=== PATIENT | female | born 1940 | race Two or more races ===

== ENCOUNTER 2017-08-12 14:15 | Emergency (ER) | payer MEDICARE, OTHER ==
[~2017-08-12] VITALS: Ht 160 cm; Wt 63.5 kg
[~2017-08-12 14:15] MED LIST: ASCO1ER PO; CALCIUM; DIAZ5 PO; ERGO400 PO; PHENY100ER PO; PROP10 PO
[2017-08-12] MEDS ORDERED: Mupirocin22 GM TOP (15:33)
== END 2017-08-12 15:42 | disposition home or self-care (01) ==
LOC: ER 14:15
DX: L72.3 Sebaceous cyst (principal); Z88.8 Allergy status to other drugs, medicaments and biological substances; Z88.1 Allergy status to other antibiotic agents; Z88.0 Allergy status to penicillin; Z88.2 Allergy status to sulfonamides; Z88.6 Allergy status to analgesic agent; Z88.7 Allergy status to serum and vaccine; Z91.011 Allergy to milk products; Z91.038 Other insect allergy status; Z79.899 Other long term (current) drug therapy; Z87.891 Personal history of nicotine dependence
CPT/HCPCS: 10060; 99283

== ENCOUNTER → 2018-03-14 | Outpatient (CLI) | payer MEDICARE, OTHER ==
[~2018-03-14] MED LIST changes: +Mupirocin22 GM TOP
[2018-03-14 12:25] LABS: Source, Urine Voided
[2018-03-14 12:59] LABS: Bilirubin, Urine Neg (Neg); Blood, Urine 2+ (Neg); Glucose Qualitative, Urine Neg (Neg); Ketones, Urine Neg (Neg); Leukocyte Esterase, Urine 3+ (Neg); Nitrite, Urine Neg (Neg); Protein, Urine 2+ (Neg); Specific Gravity, Urine 1.015 (1.003-1.022); Urobilinogen, Urine NORM (Normal)
[2018-03-14 13:17] LABS: Appearance, Urine Cloudy (Clear); Color, Urine Pale Yellow (P-Yellow)
[2018-03-14 13:19] LABS: White Blood Cells, Urine TNTC /hpf (0-5)
[2018-03-14 13:20] LABS: Bacteria Many /hpf; Renal Epithelial Rare /hpf (0-Rare); Squamous Epithelial Cells Few /hpf (Few)
== END ==
LOC: LAB SHORT 12:23 → LAB 12:23
PROVIDERS: Internal Medicine
DX: R30.0 Dysuria (principal)
CPT/HCPCS: 81001; 87086; 87147

== ENCOUNTER → 2018-04-08 | Outpatient (CLI) | payer MEDICARE, OTHER ==
[2018-04-08 10:26] LABS: Source, Urine Clean Catch
[2018-04-08 12:32] LABS: Bilirubin, Urine Neg (Neg); Blood, Urine Neg (Neg); Glucose Qualitative, Urine Neg (Neg); Ketones, Urine Neg (Neg); Leukocyte Esterase, Urine 1+ (Neg); Nitrite, Urine Neg (Neg); Protein, Urine Neg (Neg); Urobilinogen, Urine NORM (Normal)
[2018-04-08 12:41] LABS: Appearance, Urine Clear (Clear); Color, Urine Yellow (P-Yellow)
[2018-04-08 12:42] LABS: Red Blood Cells, Urine 0-2 /hpf (0-2); Squamous Epithelial Cells Few /hpf (Few); Transitional Epithelial Cells Few /hpf (0-Rare)
[2018-04-08 12:43] LABS: Bacteria Mod /hpf
== END | disposition home or self-care (01) ==
LOC: LAB SHORT 09:05 → LAB 09:05 → EDSTATUS 04-04 15:00 → LAB FUT 04-04 15:00
PROVIDERS: Internal Medicine
DX: N39.0 Urinary tract infection, site not specified (principal)
CPT/HCPCS: 81001; 87086

== ENCOUNTER 2019-10-21 20:05 | Inpatient (IN) | payer MEDICARE, OTHER ==
[~2019-10-21] VITALS: Ht 165.1 cm; Wt 39.8 kg
[~2019-10-21 20:05] MED LIST changes: -ASCO1ER PO; -CALCIUM; -ERGO400 PO; -PHENY100ER PO
[2019-10-21 20:45] LABS: Source, Urine Catheter
[2019-10-21 20:49] LABS: Bilirubin, Urine Neg (Neg); Blood, Urine Neg (Neg); Glucose Qualitative, Urine Neg (Neg); Ketones, Urine 4+ (Neg); Leukocyte Esterase, Urine Neg (Neg); Nitrite, Urine Neg (Neg); Protein, Urine 2+ (Neg); Specific Gravity, Urine 1.015 (1.003-1.022); Urobilinogen, Urine 2+ (Normal); pH, Urine 6.5 (5.0-8.0)
[2019-10-21 20:55] LABS: Hematocrit 39.8 % (33.0-51.0); Mean Corpuscular HGB 31.6 pg (26.0-34.0); Mean Corpuscular HGB Conc 32.7 g/dL (31.5-36.5); Mean Corpuscular Volume 97 fL (80-100); Mean Platelet Volume 11.3 fL (9.1-12.4); Platelet Count 305 K/mm3 (150-400); RDW Coefficient Variation 12.7 % (11.7-14.2); RDW Standard Deviation 45.5 fL (35.1-46.3); Red Blood Cell Count 4.11 M/mm3 (3.80-5.20); White Blood Cell Count 17.12 K/mm3 (4.00-11.30)
[2019-10-21 20:56] LABS: Appearance, Urine Clear (Clear); Color, Urine Yellow (P-Yellow)
[2019-10-21 21:02] LABS: Bacteria Mod /hpf; Mucus Light (0-Heavy); Red Blood Cells, Urine 0-2 /hpf (0-2); Squamous Epithelial Cells Few /hpf (Few); White Blood Cells, Urine 0-2 /hpf (0-5)
[2019-10-21 21:13] LABS: Alanine Aminotransfer (ALT/SGP 33 U/L (12-78); Albumin, Blood 2.7 g/dL (3.4-5.0); Albumin/Globulin Ratio 0.7 (0.8-1.8); Alk Phos 196 U/L (50-136); Anion Gap 10 mmol/L (6-16); Aspartate Aminotrans (AST/SGOT 26 U/L (12-37); Bilirubin, Total 0.7 mg/dL (0.1-1.0); Blood Urea Nitrogen 23 mg/dL (8-24); Bun/Creatinine Ratio 44.9 (12.0-20.0); CO2, Blood 19 mmol/L (21-32); Calcium, Blood 8.8 mg/dL (8.5-10.1); Chloride, Blood 117 mmol/L (98-108); Creatinine, Blood 0.51 mg/dL (0.40-1.00); Dilantin (Phenytoin), Total 3.3 ug/mL (10.0-20.0); Glomerular Filtration Rate >60 (60-); Glucose, Blood 116 mg/dL (70-99); Potassium, Blood 3.1 mmol/L (3.5-5.5); Sodium, Blood 146 mmol/L (136-145); Total Protein, Blood 6.7 g/dL (6.4-8.2)
[2019-10-21 21:17] LABS: Thyroid Stimulating Hormone 0.251 uIU/mL (0.360-4.800)
[2019-10-21 21:17] LABS: Bicarbonate Venous 17.9 mmol/L (24.0-30.0); PCO2 Venous 31.7 mmHg (38-42); PO2 Venous 138 mmHg (38-42); pH Blood Venous 7.32 (7.34-7.37)
[2019-10-21 21:18] LABS: Base Excess Venous -9.4 mmol/L
[2019-10-21 21:18] LABS: BAND PERCENT MAN 22 % (0-8); BASOPHILS PERCENT MAN 0 % (0-2); EOSINOPHILS PERCENT MAN 0 % (0-6); LYMPHOCYTES ABSOLUTE MAN 0.85 K/mm3 (0.84-5.20); LYMPHOCYTES PERCENT MAN 5 % (21-46); MONOCYTES ABSOLUTE MAN 0.68 K/mm3 (0.16-1.47); MONOCYTES PERCENT MAN 4 % (4-13); NEUTROPHILS ABSOLUTE MAN 15.57 K/mm3 (1.96-9.15); SEG NEUTROPHILS PERCENT MAN 69 % (41-73); TOTAL CELLS COUNTED 100
[2019-10-21] MEDS ORDERED: ACET250 PT (22:00)
[2019-10-21] MEDS ORDERED: EUTHYROX50 MCG PO (22:01)
[2019-10-21] MEDS ORDERED: PHENY100ER PO (22:23)
[2019-10-21] MEDS ORDERED: THERA-D2000 UNIT PO (22:24)
[2019-10-21] MEDS ORDERED: CALCIUM PO (22:24)
[2019-10-21] MEDS ORDERED: LEVE500 PO (22:25)
[2019-10-21] MEDS ORDERED: Levetiracetam1000 MG PT (22:26)
[2019-10-21] MEDS ORDERED: Vitamin C500 M3 PO (22:30)
[2019-10-21] MEDS ORDERED: POTA10T PO (22:30)
[2019-10-21] MEDS ORDERED: BACL10 PO (22:31)
[2019-10-21] MEDS ORDERED: MULTIVITAMIN1 EACH PO (22:32)
--- NOTE | 2019-10-22 02:32 | NUR ---
79 YR OLD FEMALE ADMITTED TO THE FLOOR FROM THE ED WITH POSSIBLE PNEUMONIA AND R/O COVID 19. AFFECT BLANK. PT HX DEMENTIA - UNABLE TO ANSWER MED HX. PLACED ON DROPLET PRECAUTIONS. INCONT OF URINE, CHANGED, WARM BALNKET APPLIED. NOTIFIED OF DYSPHAGIC S/S. IVF ORDERED. CALL LIGHT IN REACH. SEE MAR FOR MEDS GIVEN.
--- NOTE | 2019-10-22 03:58 | NUR ---
PT HAS BEEN QUIET SINCE ADMISSION. DENIED PAIN WHEN ASKED. IV POTASSIUM ADMINISTERED. CALL LIGHT IN REACH. RESTING QUIETLY AT THIS TIME.
[2019-10-22 04:42] LABS: Hematocrit 39.7 % (33.0-51.0); Hemoglobin 12.7 g/dL (11.5-16.0); Mean Corpuscular HGB 31.6 pg (26.0-34.0); Mean Corpuscular Volume 99 fL (80-100); Mean Platelet Volume 11.2 fL (9.1-12.4); Platelet Count 287 K/mm3 (150-400); RDW Coefficient Variation 12.9 % (11.7-14.2); RDW Standard Deviation 47.2 fL (35.1-46.3); Red Blood Cell Count 4.02 M/mm3 (3.80-5.20); White Blood Cell Count 13.12 K/mm3 (4.00-11.30)
[2019-10-22 05:05] LABS: Magnesium, Blood 2.4 mg/dL (1.6-2.4)
--- NOTE | 2019-10-22 05:10 | NUR ---
PT HAD PO MEDS (KEPPRA) ORDERED. UNABLE TO TAKE PILLS, PHARM NOTIFIED, PILLS CHANGED TO LIQUIDS. PT PLACED IN 90 DEGREE ANGLE AND TOLERATED INITIAL SIPS OF MED, THEN SEEMED TO ASPIRATE SM AMT (3 CC?). SUCTIONED. CONGESTED COUGH. MD NOTIFIED. NPO ALL PO MEDS. SEE MD ORDERS. WILL MONITOR. CALL LIGHT IN REACH
[2019-10-22 05:13] LABS: Anion Gap 10 mmol/L (6-16); Blood Urea Nitrogen 25 mg/dL (8-24); Bun/Creatinine Ratio 45.4 (12.0-20.0); CO2, Blood 19 mmol/L (21-32); Calcium, Blood 9.1 mg/dL (8.5-10.1); Chloride, Blood 118 mmol/L (98-108); Creatinine, Blood 0.55 mg/dL (0.40-1.00); Glomerular Filtration Rate >60 (60-); Glucose, Blood 122 mg/dL (70-99); Potassium, Blood 3.5 mmol/L (3.5-5.5); Sodium, Blood 147 mmol/L (136-145)
--- NOTE | 2019-10-22 05:31 | NUR ---
PT RESTING AT THIS TIME, RESPS EVEN AND QUIET. CALL LIGHT IN REACH. HOB REMAINS AT 90 DEGREES. IV ABX INFUSING
[2019-10-22 09:21] LABS: Adenovirus Not Detected (NOT DETECT); Bordetella pertussis Not Detected (NOT DETECT); Chlamydophila pneumoniae Not Detected (NOT DETECT); Coronavirus 229E Not Detected (NOT DETECT); Coronavirus HKU1 Not Detected (NOT DETECT); Coronavirus NL63 Not Detected (NOT DETECT); Coronavirus OC43 Not Detected (NOT DETECT); Human Metapneumovirus Not Detected (NOT DETECT); Human Rhinovirus/Enterovirus Not Detected (NOT DETECT); Influenza A/2009-H1 Not Detected (NOT DETECT); Influenza A/H1 Not Detected (NOT DETECT); Influenza A/H3 Not Detected (NOT DETECT); Influenza B Not Detected (NOT DETECT); Mycoplasma pneumoniae Not Detected (NOT DETECT); Parainfluenza Virus 1 Not Detected (NOT DETECT); Parainfluenza Virus 2 Not Detected (NOT DETECT); Parainfluenza Virus 3 Not Detected (NOT DETECT); Parainfluenza Virus 4 Not Detected (NOT DETECT); Respiratory Syncytial Virus Not Detected (NOT DETECT)
--- NOTE | 2019-10-22 12:31 | NUR ---
SISTER SPOKE WITH PT'S SISTER TERESO ON THE PHONE [phone], SHE STATES THE SPOUSE HAS DEMENTIA AND IS NOT A GOOD HISTORIAN, SHE REPORTS THE SON JON LIVES WITH THE PT AND IS HER MAIN SUPERVISOR [employer], SHE SUSPECTS NEITHER THE PT OR THE SPOUSE ARE GETTING THE CARE THEY NEED, WILL NOTIFY YOGHURT MAKER
[2019-10-22 13:50] LABS: Free Thyroxine 1.14 ng/dL (0.70-1.60)
[2019-10-22 13:52] LABS: Triiodothyronine, Free 0.56 pg/mL (2.18-3.98)
--- NOTE | 2019-10-22 17:32 | NUR ---
SUMMARY PT RESTING QUIETLY IN BED, HAS SPOKEN VERY LITTLE TODAY, ONLY ANSWERS SIMPLE QUESTIONS, DOES NOT TRY TO GET OUT OF BED, FAILED SPEECH EVAL, IS STRICT NPO, HAD AN MRI OF HER HEAD TODAY, I SPOKE WITH HER SISTER ON THE PHONE AND A SON, PT HAD NOT VOIDED ALL SHIFT, BLADDER SCAN SHOWED ALMOST 500MLS, ORDERS RECIEVED FOR STRAIGHT CATH, PT CONSUELO WELL, PT DOWN TO 2L NC, NO S/S DISTRESS, VSS, WILL CONTINUE TO MONITOR
--- NOTE | 2019-10-23 01:25 | NUR ---
PT DRY EACH ROUNDING. BLADDER SCAN 285 AT THIS TIME. ASYMPTOMATIC. PT STATES FEELING OK. WILL RE SCAN AROUND 0500 FOR F/U. IVF INFUSING ORDERED
--- NOTE | 2019-10-23 05:14 | NUR ---
SUMMARY PT REMAINS ON SPECIAL PRECAUTIONS UNTIL COVID 19 IS RULED OUT. SON (DAVID) CALLED AND STATED THAT HIS MOTHER DIDNT HAVE "DEMENTIA" BUT RATHER WAS CLOSER TO WHAT HE TERMED "LIKE A STROKE" IN THE PAST WITH SLOW RESPONSES TO QUESTIONS AND SLOW UNDERSTANDING OF QUESTIONS ASKED. STATED HIS BROTHER "JON" WOULD BE ABLE TO ANSWER QUESTIONS RE MEDICATIONS AND SUCH IN THE AM. GAVE NUMBER: [phone], AND WOULD LIKE THE AM NURSE TO CALL. I SUGGESTED AROUND 10 AM, AND HE AGREED. PT QUIET, BUT SEEMED TO BE ABLE TO ANSWER QUESTIONS POSED THROUGH NOCT SLOWLY AND WITH ONE OR TWO WORD RESPONSES. IVF INFUSING AT 75 ML/HR. INCONT OF URINE AROUND 0430. DENIED PAIN. RESPS DIMINISHED BUT CLEAR. RAILS UP X 3 AND CALL LIGHT IN REACH. WILL ASK AM NURSE F/U WITH JON.
[2019-10-23 08:23] LABS: BASOPHILS ABSOLUTE AUTO 0.02 K/mm3 (0.00-0.23); BASOPHILS PERCENT AUTO 0 % (0-2); EOSINOPHILS PERCENT AUTO 0 % (0-6); Hematocrit 33.7 % (33.0-51.0); Hemoglobin 10.8 g/dL (11.5-16.0); IMMATURE GRAN ABSOLUTE AUTO 0.05 K/mm3 (0.00-0.10); IMMATURE GRAN PERCENT AUTO 0 % (0-1); LYMPHOCYTES PERCENT AUTO 6 % (21-46); MONOCYTES ABSOLUTE AUTO 0.75 K/mm3 (0.16-1.47); MONOCYTES PERCENT AUTO 6 % (4-13); Mean Corpuscular HGB 31.3 pg (26.0-34.0); Mean Corpuscular Volume 98 fL (80-100); Mean Platelet Volume 11.3 fL (9.1-12.4); NEUTROPHILS ABSOLUTE AUTO 10.96 K/mm3 (1.96-9.15); NEUTROPHILS PERCENT AUTO 88 % (41-73); Platelet Count 275 K/mm3 (150-400); RDW Coefficient Variation 12.9 % (11.7-14.2); Red Blood Cell Count 3.45 M/mm3 (3.80-5.20); White Blood Cell Count 12.48 K/mm3 (4.00-11.30)
[2019-10-23 08:25] LABS: Anion Gap 5 mmol/L (6-16); Blood Urea Nitrogen 26 mg/dL (8-24); Bun/Creatinine Ratio 50.6 (12.0-20.0); CO2, Blood 24 mmol/L (21-32); Calcium, Blood 8.6 mg/dL (8.5-10.1); Chloride, Blood 119 mmol/L (98-108); Creatinine, Blood 0.51 mg/dL (0.40-1.00); Glomerular Filtration Rate >60 (60-); Glucose, Blood 106 mg/dL (70-99); Phosphorus, Blood 2.1 mg/dL (2.5-4.9); Sodium, Blood 148 mmol/L (136-145)
--- NOTE | 2019-10-23 14:52 | NUR ---
PHONE CALL SPOKE WITH PT'S SPOUSE ON THE PHONE [phone]
--- NOTE | 2019-10-23 18:06 | NUR ---
SUMMARY PT RESTING QUIETLY IN BED, PT MORE AWAKE AND ALERT TODAY, SPEECH THERAPY WORKED WITH THE PT AND APPROVED A DIET, PT IS A FEEDER, PILLS CRUSHED ONLY, PT/OT WORKED WITH THE PT, FAMILY HAS CALLED AND WAS ABLE TO TALK WITH THE PT ON THE PHONE WITH ASSISTANCE, DISCHARGE PLANNING INVOLVED, VSS, NO ACUTE CHANGES, WILL CONT TO MONITOR
[2019-10-24 05:56] LABS: BASOPHILS ABSOLUTE AUTO 0.02 K/mm3 (0.00-0.23); BASOPHILS PERCENT AUTO 0 % (0-2); EOSINOPHILS ABSOLUTE AUTO 0.03 K/mm3 (0.00-0.68); EOSINOPHILS PERCENT AUTO 0 % (0-6); Hematocrit 35.2 % (33.0-51.0); Hemoglobin 11.4 g/dL (11.5-16.0); IMMATURE GRAN ABSOLUTE AUTO 0.09 K/mm3 (0.00-0.10); IMMATURE GRAN PERCENT AUTO 1 % (0-1); LYMPHOCYTES ABSOLUTE AUTO 0.95 K/mm3 (0.84-5.20); LYMPHOCYTES PERCENT AUTO 8 % (21-46); MONOCYTES ABSOLUTE AUTO 0.66 K/mm3 (0.16-1.47); MONOCYTES PERCENT AUTO 6 % (4-13); Mean Corpuscular HGB 31.5 pg (26.0-34.0); Mean Corpuscular HGB Conc 32.4 g/dL (31.5-36.5); Mean Corpuscular Volume 97 fL (80-100); Mean Platelet Volume 10.8 fL (9.1-12.4); NEUTROPHILS ABSOLUTE AUTO 9.98 K/mm3 (1.96-9.15); NEUTROPHILS PERCENT AUTO 85 % (41-73); Platelet Count 264 K/mm3 (150-400); RDW Coefficient Variation 12.8 % (11.7-14.2); RDW Standard Deviation 45.8 fL (35.1-46.3); Red Blood Cell Count 3.62 M/mm3 (3.80-5.20); White Blood Cell Count 11.73 K/mm3 (4.00-11.30)
[2019-10-24 06:09] LABS: Albumin, Blood 1.8 g/dL (3.4-5.0); Anion Gap 3 mmol/L (6-16); Blood Urea Nitrogen 16 mg/dL (8-24); Bun/Creatinine Ratio 34.4 (12.0-20.0); CO2, Blood 28 mmol/L (21-32); Chloride, Blood 115 mmol/L (98-108); Creatinine, Blood 0.47 mg/dL (0.40-1.00); Glomerular Filtration Rate >60 (60-); Glucose, Blood 94 mg/dL (70-99); Phosphorus, Blood 2.2 mg/dL (2.5-4.9); Potassium, Blood 2.7 mmol/L (3.5-5.5); Sodium, Blood 146 mmol/L (136-145)
--- NOTE | 2019-10-24 06:39 | NUR ---
SHIFT SUMMSRY: PATIENT ALERT AND ORIENTED TO SELF. LOW GRADE TEMP. IS OBSERVED AT START OF SHIFT AND SOME BILATERAL HAND PAIN TYLENOL SUPPOSITORY WAS GIVEN WITH GOOD EFFECT AND WRAM BLANKET IS ALSO USED, PATIENT IS UNABLE TO SWALLOW ANY ORAL INTAKE WITHOUT COUGHING AND IS AGAIN MADE NPO. KARELY DARLING RFID DEVELOPER IS NOTIFIED PATIENT IS UNABLE TO SWALLOW KEPPRA AND A PRN IV DOSE IS ORDERED IF UNABLE TO SWALLOW ORAL GOING FORWARD. VS ARE STABLE, BED ALARM IS ON FOR SAFETY AND SOFT TOUCH CALL RAO IS GIVEN FOR EASY IN OBTAINING ASSISTANCE IF NEEDED. LAB CALLED RESULT TO JEWELRY BENCH WORKER ON COVID SWAB AND IT IS NEGATIVE, CHARGE NURSE IS AWARE.
--- NOTE | 2019-10-24 18:06 | NUR ---
SHIFT SUMMARY. PT IS ALERT, ORIENTATED TO SELF AND PLACE. PT REQUIRES 2 PERSON ASSIST TO BSC SECONDARY TO WEAKNESS AND TREMORS. PT WAS ABLE TO VOID 300ML URINE AND HAVE EXTRA LARGE BM AT APPROXIMATELY 1300, NO STRAIGHT CATH REQUIRED. BED SIDE SWALLOW EVAL CONDUCTED BY THIS RN AT BREAKFAST TIME, PT ONLY ABLE TO TAKE TWO SPOONFULS OF NECTAR THICK LIQUID OR PUREE BEFORE APPEARING TO BECOME FATIGUED AND HAVE DIFFICULTY SWALLOWING THIRD SPOOFULL. DR. SLOAN NOTIFIED, ALL MEDICATIONS CHANGED TO ELIXER. ST EVALUATED PT AND CAME TO THE SAME CONCLUSION, PT MADE NPO EXCEPT FOR MEDICATIONS, IV FLUIDS RESTARTED PER DR. SLOAN'S ORDERS. PT TURNED PER SCHEDULE, ORAL CARE PERFORMED. PT RECIEVED IV POTASSIUM, PT DID NOT TOLERATE PO POTASSIUM ELIXER.
--- NOTE | 2019-10-24 18:11 | NUR ---
Advanced care planning: Spoke with pt's son, Antwan. He states that mom is very debilitated at home. She has started to have a very poor appetite at home and she is experiencing early satiation with meals. She is not able to walk at home. She is incontinent, even though he tries to take her to the restroom. She experiences frequent constipation and is concerned about her bowel movements. She does not like to drink fluids. She has gotten weaker at home. She coughs when she eats at home, this has been off and on for a little less than 1 year. She has started to be more forgetful and asking for her mother. He reminds her that her mother has already . This causes some emotional trauma in her. Her quality of life is watching some programs on TV. She used to knit, however, she has not been able to do this for quite some time. He is aware that she has dementia. The family does not have a plan for her on a senior living basis - if she gets better or if she gets worse during this admission. Antwan will be calling and talking to his father, his brother (Praneeth) and the pt's sister (Saundra). KPS 30% PPS 30% FAST 7C At this time, pt qualifies for hospice care based on dementia diagnosis. With her swallowing difficulties, a PEG tube placement would be contraindicated with a dementia diagnosis. Pt at high risk for readmission due to her fragile state. Will continue to work with pt's family for advanced care planning. Expect to have a POLST form signed by her tomorrow, who is also a patient at the hospial at this time. He has expressed that he does not have a plan for her if she continues to decline. He has not considered hospice care, but reports that he would not agree to it. He would like her to continue curative treatments to extend her life. He does agree that she would not want to be resusitated and DNR/DNI status continued.
--- NOTE | 2019-10-24 19:16 | NUR ---
PT HAD BLADDER SCAN OF 819ML, WENT TO STRAIGHT CATH AND FOUND THAT PT HAD INCONTINENT VOID. POST VOID RESIDUAL 124ML. UPDATED ON PT'S STATUS PER PT AND REQUEST.
--- NOTE | 2019-10-25 00:26 | NUR ---
REFUSAL OF CARE PT ADAMENTLY REFUSED GETTING A BLADDERSCAN DONE AND HAVING HER BLOODSUGAR TAKEN
--- NOTE | 2019-10-25 02:27 | NUR ---
: PATIENT WAS SLEEPING AT 0000 SO Q 6 H BLADDER SCAN IS DONE NOW. BLADDER SCAN SHOWS 787ML. PATIENT IS STRAIGHT ATHED FOR 600 ML. PATIENT TOLERATED PROCEEDURE WELL.
[2019-10-25 04:03] LABS: BASOPHILS ABSOLUTE AUTO 0.05 K/mm3 (0.00-0.23); BASOPHILS PERCENT AUTO 0 % (0-2); EOSINOPHILS ABSOLUTE AUTO 0.02 K/mm3 (0.00-0.68); EOSINOPHILS PERCENT AUTO 0 % (0-6); Hemoglobin 11.4 g/dL (11.5-16.0); IMMATURE GRAN ABSOLUTE AUTO 0.11 K/mm3 (0.00-0.10); IMMATURE GRAN PERCENT AUTO 1 % (0-1); LYMPHOCYTES ABSOLUTE AUTO 0.82 K/mm3 (0.84-5.20); LYMPHOCYTES PERCENT AUTO 7 % (21-46); MONOCYTES ABSOLUTE AUTO 0.73 K/mm3 (0.16-1.47); MONOCYTES PERCENT AUTO 6 % (4-13); Mean Corpuscular HGB 31.1 pg (26.0-34.0); Mean Corpuscular HGB Conc 32.6 g/dL (31.5-36.5); Mean Corpuscular Volume 95 fL (80-100); Mean Platelet Volume 10.5 fL (9.1-12.4); NEUTROPHILS ABSOLUTE AUTO 10.97 K/mm3 (1.96-9.15); NEUTROPHILS PERCENT AUTO 86 % (41-73); Platelet Count 269 K/mm3 (150-400); RDW Coefficient Variation 12.7 % (11.7-14.2); RDW Standard Deviation 44.8 fL (35.1-46.3); Red Blood Cell Count 3.67 M/mm3 (3.80-5.20)
--- NOTE | 2019-10-25 04:07 | NUR ---
SHIFT SUMMARY: PATIENT IS A&O TO SELF AND FAMILY. LOW GRADE TEMP. IS PERSISTANT. CONTINUES TO RETAIN URINE REQUIRING A STRAIGHT CATH X1. URINE IS MIKAELA WITH SEDIMENT. NO REPORTS OF PAIN OR DISCOMFORT. PATIENT REFUSED 0000 BLADDER SCAN AND BLOOD GLUCOSE CHECK, D5 1/2 NS WITH 40 OF KCL IS INFUSING PER MD ORDR. PATIENT REMAINS NPO AND WAS UNABLE TO SWALLOW PO KEPPRA. KARELY DARLING DRUG DEPARTMENT WORKER WAS NOTIFIED AND ORDER WAS OBTAINED FOR IV. PHARMASIST CALLED TALENT COORDINATOR WITH CONCERNS ABOUT SEIZURE MEDICATIONS AT HIGH DOSES AND DRECREASED RENAL FUNCTION. LAST DILANTIN LEVEL WAS 3/3 ON 10/21/19. ORAL CARE AND T&P ARE GIVEN. SOFT TOUCH CALL RAO IS WITHIN REACH AND TAB ALRM IS ON FOR SAFETY.
[2019-10-25 04:22] LABS: Anion Gap 5 mmol/L (6-16); Blood Urea Nitrogen 6 mg/dL (8-24); Bun/Creatinine Ratio 14.9 (12.0-20.0); CO2, Blood 29 mmol/L (21-32); Calcium, Blood 7.6 mg/dL (8.5-10.1); Chloride, Blood 111 mmol/L (98-108); Glomerular Filtration Rate >60 (60-); Glucose, Blood 119 mg/dL (70-99); Sodium, Blood 145 mmol/L (136-145)
[2019-10-25 09:42] LABS: Dilantin (Phenytoin), Total 2.2 ug/mL (10.0-20.0)
--- NOTE | 2019-10-25 18:19 | NUR ---
SHIFT SUMMARY. THIS AM ATTEMPTED TO ADMINISTER PO DILANTIN ELIXER TO PT, PT HAD DIFFICULTY SWALLOWING AND COUGHED FOR SEVERAL MINUTES, ORAL SUCTIONING PROVIDED DURING COUGHING. L UPPER LOBE MORE COARSE POST DIFFICULTY SWALLOWING FROM AM ASSESSMENT. DR. SLOAN NOTIFIED, PT MADE STRICT NPO. PO MEDICATIONS CHANGED TO IV. PT CONTINUES TO RETAIN URINE, BLADDER SCAN VOLUME GREATER THAN 450ML THIS AFTERNOON, PT STRAIGHT CATHED. PT O2 REQUIREMENTS INCREASED FROM 2L TO 3L UPON AM VS ASSESSMENT. PT DENIES PAIN, N/V. POTASSIUM SUPPLEMENTED THIS AM.
--- NOTE | 2019-10-26 00:12 | NUR ---
0008 PHYSICIAN CORRESPONDENCE ALERTED ON-CALL INCREASE NEED FOR O2. PREVIOUSLY 83% SATURATION ON 3L NC. INCREASED TO 5L; CURRENTLY SATING AT 88%. COARSE BS T/O WORSE ON THE L THAN THE R. ARUN CALI STATES WILL LOOK INTO HER FURTHER
[2019-10-26 04:16] LABS: BASOPHILS ABSOLUTE AUTO 0.07 K/mm3 (0.00-0.23); BASOPHILS PERCENT AUTO 0 % (0-2); EOSINOPHILS PERCENT AUTO 0 % (0-6); Hematocrit 34.6 % (33.0-51.0); IMMATURE GRAN ABSOLUTE AUTO 0.28 K/mm3 (0.00-0.10); IMMATURE GRAN PERCENT AUTO 2 % (0-1); LYMPHOCYTES ABSOLUTE AUTO 0.78 K/mm3 (0.84-5.20); LYMPHOCYTES PERCENT AUTO 5 % (21-46); MONOCYTES ABSOLUTE AUTO 1.09 K/mm3 (0.16-1.47); MONOCYTES PERCENT AUTO 6 % (4-13); Mean Corpuscular HGB Conc 31.8 g/dL (31.5-36.5); Mean Platelet Volume 11.1 fL (9.1-12.4); NEUTROPHILS ABSOLUTE AUTO 15.29 K/mm3 (1.96-9.15); NEUTROPHILS PERCENT AUTO 87 % (41-73); Platelet Count 238 K/mm3 (150-400); RDW Coefficient Variation 12.4 % (11.7-14.2); Red Blood Cell Count 3.55 M/mm3 (3.80-5.20); White Blood Cell Count 17.51 K/mm3 (4.00-11.30)
[2019-10-26 04:17] LABS: Mean Corpuscular Volume 98 fL (80-100)
[2019-10-26 04:34] LABS: Anion Gap 4 mmol/L (6-16); Blood Urea Nitrogen 7 mg/dL (8-24); Bun/Creatinine Ratio 16.7 (12.0-20.0); CO2, Blood 31 mmol/L (21-32); Calcium, Blood 7.8 mg/dL (8.5-10.1); Chloride, Blood 109 mmol/L (98-108); Creatinine, Blood 0.42 mg/dL (0.40-1.00); Glomerular Filtration Rate >60 (60-); Glucose, Blood 114 mg/dL (70-99); Potassium, Blood 3.3 mmol/L (3.5-5.5); Sodium, Blood 144 mmol/L (136-145)
--- NOTE | 2019-10-26 04:41 | NUR ---
SHIFT SUMMARY ALERT /c QUIET/GARBLED SPEECH. ANSWERS QUESTIONS TO THE BED OF HER ABILITY. REPOSITIONED T/O SHIFT. SOFT TOUCH PAD TO CHEST; DOES NOT UTILIZE. INCREASED O2 NEEDS THIS SHIFT, ON-CALL NOTIFIED. REPEAT CXR SHOWED INCREASED OPACITIES. ENCOURAGED TO COUGH SO THAT SUCTION COULD BE UTILIZED. PATIENT STATED SATISFACTION AND SAID FELT BETTER AFTER COUGHING AND GET UP THE PHLEGM. REPOSITIONED T/O SHIFT. APPEARED TO REST OFF/ON. FEBRILE; MEDICATED PER EMAR. WCTM. BED IN LOWEST POSITION. REPORT TO ONCOMING RN.
--- NOTE | 2019-10-26 11:43 | NUR ---
Pt resting in bed upon arrival. Pt is A&OX1. Pt's speech is difficult to understand. Tremors noted on upper extremities, head, and neck. Spoke with Bedside RN Luz and discussed case. Spoke with Dr Bradford and discussed case. Plan is for Dr Bradford to call Pt's neurologist and discuss case. Reviewed chart including ST assessment. Pt to remain NPO at this time. Palliative Care will remain available. Palliative Care will F/U with if Pt does not improve.
--- NOTE | 2019-10-26 17:15 | NUR ---
PT IS AOX4 AND COOPERATIVE OF CARE. PT HAS BEEN UP FOR HER MEALS AND IS WORKING ON USING FLUTTER VALVE INSTRUCTED. PT STILL FEELS BETER LAYING ON HER L SIDE. PT UP EATING DINNER AT THIS TIME, WILL CONTINUE TO MONITOR.
--- NOTE | 2019-10-26 17:19 | NUR ---
PT IS AOX1 AND COOPERATIVE OF CARE. PT NEEDS TURNED Q2 HRS AND IS VERY WEAK AT THIS TIME. PT IS NPO AND SUCTION IS NEEDED THROUGHOUT THE DAY. PT CONTINUES ON 6 L AND IS TALKING A SMALL AMOUNT. PT'S BODY MILDLY SHAKES WITH ALL MOVEMENT OF MUSCLES. PT HAS BEEN PUT ON PPN AT THIS TIME WILL CONTINUE TO MONITOR.
--- NOTE | 2019-10-27 04:57 | NUR ---
BLADDER SCAN SHOWED 760CC URINE. ENCOURAGED PT TO VOID, UNABLE. STRAIGHT CATH RESULTED IN 700CC URINE OUT. PT CONSUELO WELL.
[2019-10-27 05:12] LABS: BASOPHILS ABSOLUTE AUTO 0.06 K/mm3 (0.00-0.23); BASOPHILS PERCENT AUTO 0 % (0-2); EOSINOPHILS PERCENT AUTO 0 % (0-6); Hematocrit 39.2 % (33.0-51.0); Hemoglobin 12.4 g/dL (11.5-16.0); IMMATURE GRAN PERCENT AUTO 3 % (0-1); LYMPHOCYTES ABSOLUTE AUTO 0.67 K/mm3 (0.84-5.20); LYMPHOCYTES PERCENT AUTO 3 % (21-46); MONOCYTES PERCENT AUTO 6 % (4-13); Mean Corpuscular HGB 31.1 pg (26.0-34.0); Mean Corpuscular HGB Conc 31.6 g/dL (31.5-36.5); Mean Corpuscular Volume 98 fL (80-100); NEUTROPHILS ABSOLUTE AUTO 17.97 K/mm3 (1.96-9.15); NEUTROPHILS PERCENT AUTO 88 % (41-73); Platelet Count 177 K/mm3 (150-400); RDW Coefficient Variation 12.3 % (11.7-14.2); RDW Standard Deviation 44.5 fL (35.1-46.3); Red Blood Cell Count 3.99 M/mm3 (3.80-5.20)
--- NOTE | 2019-10-27 05:18 | NUR ---
SHIFT SUMMARY: 90-93% ON 6L VIA NC. A/OX1. PT ANSWERS SOME QUESTIONS APPROPRIATELY WHEN GIVEN PLENTY OF TIME TO RESPOND. CONFUSION INCREASED DURING THE NIGHT. PT BEGAN ATTEMPTING TO GET OOB. ASKED WHERE SHE WAS GOING, PT RESPONDED, "I DON'T KNOW". WHEN ASKED IF SHE KNOWS WHERE SHE IS, PT RESPONDED, "I DON'T KNOW". ENCOURAGED PT TO LAY BACK IN BED AND RAISED 3RD BED RAIL. STRAIGHT CATH X 1 FOR RETAINED URINE. PT VERY UNCOMFORTABLE ON BED OSHEA AND SEEMED TO HAVE DIFFICULT W/ THE CONCEPT OF VOIDING WILLINGLY IN HER BRIEF. SHE WAS INCONTINENT OF URINE EARLIER IN THE SHIFT HOWEVER. COARSE LS W/DIM BASES. OCC. PRODUCTIVE COUGH W/MOD AMTS OF CHISHOLM SPUTUM SUCTIONED. COUGH INCREASES W/MOVEMENT AND TURNS. PPN CONTINUOUSLY ORDERED. PT CONSUELO WELL. BED LOW, BED ALARM ON. LIGHT TOUCH CALL BUTTON ON CHEST, PT DOES NOT USE. WILL CONT TO MONITOR.
[2019-10-27 05:45] LABS: Anion Gap 5 mmol/L (6-16); Blood Urea Nitrogen 10 mg/dL (8-24); Bun/Creatinine Ratio 25.1 (12.0-20.0); CO2, Blood 27 mmol/L (21-32); Calcium, Blood 7.8 mg/dL (8.5-10.1); Chloride, Blood 108 mmol/L (98-108); Glomerular Filtration Rate >60 (60-); Glucose, Blood 132 mg/dL (70-99); Phosphorus, Blood 2.5 mg/dL (2.5-4.9); Potassium, Blood 2.7 mmol/L (3.5-5.5); Sodium, Blood 140 mmol/L (136-145); Triglycerides 119 mg/dL (30-160)
--- NOTE | 2019-10-27 17:04 | NUR ---
Initial spiritual care note: Mrs. Tsai appears quite frail. She speaks softly and weakly. She engaged well in conversation and spoke to me of her love for her family. She has been to her spouse "for more than fifty years" and her adult children are attentive. She denies concern and tells me she trusts he to make the right choice for her care. That said, she also told me that she "wants to keep going." Magaly credits God for her life and in the timing of her . She denies being fearful, but states she knows "its not time." She expects to return home with her . I am uncertain about this. Regardless, we had a good rapport and she appeared to appreciate encouragement and prayer. I will remain available.
--- NOTE | 2019-10-27 17:38 | NUR ---
SHIFT SUMMARY- PT HAS SOME INTERMITENT ALERTNESS. SHE IS SLOW TO RESPOND AND HAS DIFFICULTY CATCHING HER BREATH. PT WAS ON A NASAL CANNULA THIS MORNING WITH 6 L O2 AND HER SATRUATIONS WERE BETWEEN 82-90, SWITCHED HER TO AN OXIMIZER AND HER SATURATIONS HAVE BEEN ELEVATED. BLADDER SCANNED THIS MORNING AND SHE PROMPTLY VOIDED REMEASURED HER BLADDER AND IT WAS 382. SHE HAS VOIDED SEVERAL TIMES SINCE THEN. SHE IS RECIEVING IV MEDICATIONS. SHE IS NPO. PT WAS REEVALUATED BY SPEECHTHERAPY AND SHE IS STILL UNSAFE TO SWALLOW. ST REPORTS SHE IS DECLINING. PT AND OT WORKED WITH PT THIS MORNING AND REPORTED DECLINE IN PT OVERALL STRENGTH. SPOKE WITH PT , HE REQUESTED THAT SHE RECIEVE TUBE FEEDINGS, RELAYED REQUEST TO DR. SLOAN. SHE SAID THAT IS A CONSIDERATION BUT WOULD LIKE TO GIVE THE PTS LUNGS A REST BEFORE PROGRESSING WITH THAT OPTION.
[2019-10-28 04:58] LABS: Anion Gap 6 mmol/L (6-16); Blood Urea Nitrogen 12 mg/dL (8-24); Bun/Creatinine Ratio 30.3 (12.0-20.0); CO2, Blood 22 mmol/L (21-32); Calcium, Blood 7.6 mg/dL (8.5-10.1); Chloride, Blood 113 mmol/L (98-108); Glomerular Filtration Rate >60 (60-); Glucose, Blood 123 mg/dL (70-99); Phosphorus, Blood 2.9 mg/dL (2.5-4.9); Potassium, Blood 2.5 mmol/L (3.5-5.5); Sodium, Blood 141 mmol/L (136-145)
--- NOTE | 2019-10-28 06:21 | NUR ---
SHIFT SUMMARY PT HAS BEEN ABLE TO VOID ON HER OWN WITHOUT THE NEED OF A STRAIGHT CATH. POST BLADDER SCAN VOIDS HAVE BEEN UNDER 400 MLS. PT HAS RESTED MOST OF THE NIGHT. AFFECT IS FLAT AND WITHDRAWN. PT ABLE TO ANSWER SOME OF MY QUESTIONS APPROPRIATELY, SLOW TO RESPOND. PT SLEEPS MOST OF THE TIME. SHE IS INCONTINENT AND IS RESISITENT TO TURNS AND BED CHANGES. PPN INFUSING, ANTI SEIZURE MEDICATIONS CONTINUED ORDERED. PT HAS BEEN STRICLY NPO THIS SHIFT PER ORDERS. NO ACUTE CHANGES TO REPORT OVERNIGHT, BED IN LOWEST POSITION, CALL LIGHT WITHIN REACH. WILL CONTINUE TO MONITOR AND REPORT TO ONCOMING RN.
--- NOTE | 2019-10-28 16:52 | NUR ---
Spiritual care note: Mrs. Tsai appeared more frail/tired today. She was nearly impossible to understand--speech was quite garbled. She denied pain/fear. I provided prayer and assurance of God's love and attention. I sat with her a while offering companionship/encouragement. I will remain available.
--- NOTE | 2019-10-28 18:39 | NUR ---
alert, orintated to self, call light in reach, new IV started in r arm, l arm still infusing tpn, 4L via nc, bed in low position, no acute changes noted during shift, surgery scheduled for tube placement, will continue to monitor and treat until share bsr with noc nurse
[2019-10-29 04:45] LABS: BASOPHILS ABSOLUTE AUTO 0.05 K/mm3 (0.00-0.23); BASOPHILS PERCENT AUTO 0 % (0-2); EOSINOPHILS ABSOLUTE AUTO 0.06 K/mm3 (0.00-0.68); EOSINOPHILS PERCENT AUTO 0 % (0-6); Hematocrit 33.3 % (33.0-51.0); Hemoglobin 10.7 g/dL (11.5-16.0); IMMATURE GRAN ABSOLUTE AUTO 0.32 K/mm3 (0.00-0.10); IMMATURE GRAN PERCENT AUTO 2 % (0-1); LYMPHOCYTES ABSOLUTE AUTO 0.85 K/mm3 (0.84-5.20); LYMPHOCYTES PERCENT AUTO 4 % (21-46); MONOCYTES ABSOLUTE AUTO 1.07 K/mm3 (0.16-1.47); MONOCYTES PERCENT AUTO 5 % (4-13); Mean Corpuscular HGB 31.2 pg (26.0-34.0); Mean Corpuscular HGB Conc 32.1 g/dL (31.5-36.5); Mean Corpuscular Volume 97 fL (80-100); Mean Platelet Volume 11.5 fL (9.1-12.4); NEUTROPHILS ABSOLUTE AUTO 17.35 K/mm3 (1.96-9.15); NEUTROPHILS PERCENT AUTO 88 % (41-73); Platelet Count 211 K/mm3 (150-400); RDW Coefficient Variation 12.3 % (11.7-14.2); RDW Standard Deviation 44.1 fL (35.1-46.3); Red Blood Cell Count 3.43 M/mm3 (3.80-5.20)
[2019-10-29 05:01] LABS: Anion Gap 6 mmol/L (6-16); Blood Urea Nitrogen 10 mg/dL (8-24); Bun/Creatinine Ratio 26.1 (12.0-20.0); CO2, Blood 22 mmol/L (21-32); Calcium, Blood 7.7 mg/dL (8.5-10.1); Chloride, Blood 116 mmol/L (98-108); Creatinine, Blood 0.38 mg/dL (0.40-1.00); Glomerular Filtration Rate >60 (60-); Glucose, Blood 92 mg/dL (70-99); Magnesium, Blood 1.9 mg/dL (1.6-2.4); Potassium, Blood 2.9 mmol/L (3.5-5.5); Sodium, Blood 144 mmol/L (136-145)
--- NOTE | 2019-10-29 07:26 | NUR ---
PT A/O X2 TO SELF AND PLACE. PT HAD ORDERS TO BLADDER SCAN Q6 AND STRAIGHT NEFTALI NEEDED BASED ON ORDER. PT WAS BLADDER SCANNED WITH 566 ML IN BLADDER. SHE HAD 1 EPISODE OF INCONT PRIOR TO BLADDER SCAN.
--- NOTE | 2019-10-29 09:02 | NUR ---
PT OUT FOR PROCEDURE NO IV ACCESS
--- NOTE | 2019-10-29 09:12 | NUR ---
PT TRANSFERED TO [facility]IA GURNEY FROM [facility]. Lungs clear T/O to Auscultation. History, Chart, Medications and Allergies reviewed before start of procedure. Patient confirms NPO status and agrees with scheduled surgery.
--- NOTE | 2019-10-29 10:05 | NUR ---
10/29/19 1005 Gerald Page See Anesthesia record. O2 VIA N/C INTACT THROUGHOUT SEDATION/PROCEDURE. NMONITOR INTACT WITH CONTINUOUS PULSE OXIMETRY AND INTERMITTENT BP.
--- NOTE | 2019-10-29 10:30 | NUR ---
informed diatary pt should be available for tube feeding at 1600
--- NOTE | 2019-10-29 12:10 | NUR ---
still no iv access, attempted start, waiting for different nurse to seek access, pt resting and talking to mary, have been providing warm blankets, cbg 69 noted, will recheck in 1 hour
--- NOTE | 2019-10-29 18:13 | NUR ---
Clinical Visit: Pt is oriented to self and to hospital care. Bedside nurse is present in the room. Pt is reporting severe pain and anxiety. She has non-verbal indicators of pain such as guarding/splinting, furrowed brow. She points to the surgical site of where she is experiencing pain. Nurse has just started tube feedings for her. She has rectal Tylenol, but he is requesting it be changed to per tube. Overall, the pt is appearing very fearful and afraid. Call placed to Dr. Bradford. She is placing orders for Tylenol PT and for some Xanax to help with symptoms. Discussed family decisions. Palliative to update them tomorrow after clinical assessment to see how she is doing on feedings overnight. Will remain available.
--- NOTE | 2019-10-29 19:29 | NUR ---
NEW PEG TUBE WORKING WELL, INFUSING WITH NO DIFFICULTY, STATES SHE FEELS PAIN AT SITE, OFFERED MEDICATION AND TREATMENTS, DISCUSSED WITH NOC NURSE
[2019-10-30 05:13] LABS: BASOPHILS ABSOLUTE AUTO 0.04 K/mm3 (0.00-0.23); BASOPHILS PERCENT AUTO 0 % (0-2); EOSINOPHILS ABSOLUTE AUTO 0.03 K/mm3 (0.00-0.68); EOSINOPHILS PERCENT AUTO 0 % (0-6); Hematocrit 30.7 % (33.0-51.0); Hemoglobin 9.6 g/dL (11.5-16.0); IMMATURE GRAN ABSOLUTE AUTO 0.26 K/mm3 (0.00-0.10); IMMATURE GRAN PERCENT AUTO 2 % (0-1); LYMPHOCYTES ABSOLUTE AUTO 0.82 K/mm3 (0.84-5.20); LYMPHOCYTES PERCENT AUTO 6 % (21-46); MONOCYTES ABSOLUTE AUTO 0.94 K/mm3 (0.16-1.47); MONOCYTES PERCENT AUTO 6 % (4-13); Mean Corpuscular HGB 30.4 pg (26.0-34.0); Mean Corpuscular HGB Conc 31.3 g/dL (31.5-36.5); Mean Corpuscular Volume 97 fL (80-100); Mean Platelet Volume 11.6 fL (9.1-12.4); NEUTROPHILS ABSOLUTE AUTO 12.57 K/mm3 (1.96-9.15); NEUTROPHILS PERCENT AUTO 86 % (41-73); Platelet Count 180 K/mm3 (150-400); RDW Coefficient Variation 12.3 % (11.7-14.2); RDW Standard Deviation 43.7 fL (35.1-46.3); Red Blood Cell Count 3.16 M/mm3 (3.80-5.20); White Blood Cell Count 14.66 K/mm3 (4.00-11.30)
--- NOTE | 2019-10-30 05:43 | NUR ---
BOX LOADER SUMMARY PT A/O X1 TO SELF. PT APPEARS FEARFUL SHE IS VERY HESITANT TO TURN IN BED WHEN MANAGER COMPLIANCE AND I ASSIST PT TO REPOSITION IN BED. PT DENIES ABD PAIN AND HAS TOLERATED TUBE FEEDING WELL. PEGG TUBE SITE C/D/I. RESIDUE CHECKED Q4 HOURS WITH LESS THAN 5ML RESIDUAL EACH TIME. TUBE FEEDING RATE AND FLUSH PROGRAMMED ORDERED. ABD BINDER IN PLACE. PT'S Q4 VITALS HAS ALL BEEN STABLE. BLOOD SUGAR STABLE WELL. PT IS VERY FRAIL. VICTOR PATENT AND DRAINING CLOUDY URINE WITH SOME SEDIMENTS. PT'S UPDATED ABOUT PT'S CONDITION.
[2019-10-30 05:45] LABS: Anion Gap 6 mmol/L (6-16); Blood Urea Nitrogen 13 mg/dL (8-24); Bun/Creatinine Ratio 30.6 (12.0-20.0); CO2, Blood 22 mmol/L (21-32); Calcium, Blood 7.9 mg/dL (8.5-10.1); Chloride, Blood 117 mmol/L (98-108); Creatinine, Blood 0.43 mg/dL (0.40-1.00); Glomerular Filtration Rate >60 (60-); Glucose, Blood 110 mg/dL (70-99); Magnesium, Blood 2.1 mg/dL (1.6-2.4); Phosphorus, Blood 3.8 mg/dL (2.5-4.9); Potassium, Blood 2.9 mmol/L (3.5-5.5); Sodium, Blood 145 mmol/L (136-145)
--- NOTE | 2019-10-30 17:32 | NUR ---
SHIFT SUMMARY PT ALERT AND ORIENTED TO SELF THIS SHIFT. PT RESPONDS TO QUESTIONS, OFTEN UNSURE OF ANSWERS TO EVEN BASIC QUESTIONS. PT UNSURE OF HER CHILDRENS' NAMES. PT CALM THROUGHOUT THIS SHIFT. PT HAS BEEN TOLERATING PEG TUBE FEEDINGS WELL. PEG TUBE SITE REMAINS CLEAN WITHOUT DRAINAGE. RESIDUALS DC'D THIS SHIFT. PT SPOKE WITH HER MULTIPLE TIMES DURING THIS SHIFT. PT REMAINS ON BED REST, ANXIOUS WHEN TURNED OR REPOSITIONED. PT CURRENTLY RESTING.
--- NOTE | 2019-10-31 02:02 | NUR ---
patient wide awake and states she's feeling anxious. xanax given per emar '
[2019-10-31 04:52] LABS: Anion Gap 7 mmol/L (6-16); Blood Urea Nitrogen 11 mg/dL (8-24); Bun/Creatinine Ratio 26.6 (12.0-20.0); CO2, Blood 25 mmol/L (21-32); Calcium, Blood 7.7 mg/dL (8.5-10.1); Chloride, Blood 115 mmol/L (98-108); Creatinine, Blood 0.41 mg/dL (0.40-1.00); Glomerular Filtration Rate >60 (60-); Glucose, Blood 114 mg/dL (70-99); Potassium, Blood 3.1 mmol/L (3.5-5.5); Sodium, Blood 147 mmol/L (136-145)
--- NOTE | 2019-10-31 05:53 | NUR ---
STEM FRAZER SUMMARY Patient continues to toleratetube feeding. Tylenol in evening resolved abd discomfort overnight. Xanax at 0200 allowed patient to relax a bit before falling to sleep. Patient couldn't tolerate being turned onto sides, so she was floated on pillows and shifted every two hours for comfort. patient slept last few hours of shift after receiving medication for her anxiety.
--- NOTE | 2019-10-31 15:42 | NUR ---
SUMMARY PT IS VERY WEAK/FATIGUED, PALE. THIN/FRAIL IN APPEARANCE. SHE STATE NO PAIN. A/O TO SELF HOWEVER STATE KNOWLEDGE THAT SHE IS IN HOSP. HX DEMENTIA. SHE IS BEDBOUND @ THIS TIME. TURN Q2, SHE BECOMES FEARFUL w TURNS & REPOSITIONING. ST ATTEMPTED EVAL THIS AM HOWEVER PT BECAME ANGRY, REFUSING, THERAPIST STATE WILL ATTEMPT AGAIN IN AM. PT NPO R/T ASP PNEUM, JEVITY TUBE FEEDING CONTINUES @ 35 ML/HR w Q4 WATER FLUSH 125ML. TOLERATING WELL, NO RESIDUALS TODAY. HER K+ WAS LOW THIS AM, 3.1, DR SMITH ORDER 40MEQ VIA PEG SUPPLEMENT. REAL ESTATE SALES ASSOCIATE PROVIDE COMPLETE BEDBATH. ORAL CARE PROVIDED w SX. VSS. PT CALLED TO CHECK ON HER, QUESTIONS/CONCERNS ADDRESSED. HE WILL CONTACT SURGICAL SCRUB TECHNOLOGIST FOR D/C PLAN.
--- NOTE | 2019-10-31 20:45 | NUR ---
LATE NOTE: AT 1930, PATIENT TEMP 100.6. 02 SAT ON 3LITERS OXIMIZER WAS 84%/ RT NOTIFIED AND TURNED 02 UP TO 7 LITERS TO OBTAIN SAT OF 90%. APAP GIVEN EMERGENTLY. HOSPITALIST NOTIFIED AND ORDERS FOR STAT CXR, BLOOD CULTURES RECEIVED. COVERS REMOVED. PATIENT APPEARS UNCHANGED. FLAT AFFECT, PROFOUNDLY WEAK WITH WHISPERING VOICE. ORIENTED TO SELF AND SURROUNDINGS. WILL CONTINUE CLOSE MONITORING
[2019-10-31 21:22] LABS: Anion Gap 5 mmol/L (6-16); Blood Urea Nitrogen 14 mg/dL (8-24); Bun/Creatinine Ratio 30.9 (12.0-20.0); CO2, Blood 26 mmol/L (21-32); Calcium, Blood 8.2 mg/dL (8.5-10.1); Chloride, Blood 115 mmol/L (98-108); Creatinine, Blood 0.45 mg/dL (0.40-1.00); Glomerular Filtration Rate >60 (60-); Glucose, Blood 112 mg/dL (70-99); Potassium, Blood 3.4 mmol/L (3.5-5.5); Sodium, Blood 146 mmol/L (136-145)
[2019-10-31 21:49] LABS: BASOPHILS ABSOLUTE AUTO 0.04 K/mm3 (0.00-0.23); BASOPHILS PERCENT AUTO 0 % (0-2); EOSINOPHILS ABSOLUTE AUTO 0.07 K/mm3 (0.00-0.68); EOSINOPHILS PERCENT AUTO 0 % (0-6); Hematocrit 31.3 % (33.0-51.0); Hemoglobin 10.2 g/dL (11.5-16.0); IMMATURE GRAN ABSOLUTE AUTO 0.25 K/mm3 (0.00-0.10); IMMATURE GRAN PERCENT AUTO 2 % (0-1); LYMPHOCYTES ABSOLUTE AUTO 1.05 K/mm3 (0.84-5.20); LYMPHOCYTES PERCENT AUTO 6 % (21-46); MONOCYTES ABSOLUTE AUTO 1.14 K/mm3 (0.16-1.47); MONOCYTES PERCENT AUTO 7 % (4-13); Mean Corpuscular HGB 31.4 pg (26.0-34.0); Mean Corpuscular HGB Conc 32.6 g/dL (31.5-36.5); Mean Corpuscular Volume 96 fL (80-100); Mean Platelet Volume 10.6 fL (9.1-12.4); NEUTROPHILS ABSOLUTE AUTO 13.88 K/mm3 (1.96-9.15); NEUTROPHILS PERCENT AUTO 85 % (41-73); Platelet Count 438 K/mm3 (150-400); RDW Coefficient Variation 12.5 % (11.7-14.2); RDW Standard Deviation 44.1 fL (35.1-46.3); Red Blood Cell Count 3.25 M/mm3 (3.80-5.20); White Blood Cell Count 16.43 K/mm3 (4.00-11.30)
[2019-11-01 04:48] LABS: Anion Gap 5 mmol/L (6-16); Blood Urea Nitrogen 15 mg/dL (8-24); Bun/Creatinine Ratio 34.7 (12.0-20.0); CO2, Blood 26 mmol/L (21-32); Chloride, Blood 113 mmol/L (98-108); Creatinine, Blood 0.43 mg/dL (0.40-1.00); Glomerular Filtration Rate >60 (60-); Glucose, Blood 97 mg/dL (70-99); Sodium, Blood 144 mmol/L (136-145)
--- NOTE | 2019-11-01 07:39 | NUR ---
SUPERVISOR OF COMMUNICATIONS SUMMARY Patient febrile 100.6 with 02 saturation of 84% on 2 liters oximizer. RT called who increased 02 to 7 liters to get SAT of 90%, and APAP given at 1959 to reduce fever. Patient was more lethargic than the previous evening as noted by this RN. Orders received for Continuous Pulse oximetry, 500 ml Fluid bolus, both Flagyl and Levaquin. Patients temp on re-check was 98.8, and 02 SAT returned to mid 90's. Patient has been alert enough to cooperate with care as well as converse (bhargavi very quietly) with staff each time they come in
--- NOTE | 2019-11-01 16:16 | NUR ---
SHIFT SUMMARY PT AXO TO SELF AND BIRTHDATE BUT CANNOT RECALL WHERE SHE IS. ABLE TO ANSWER QUESTIONS APPROPRIATELY. VSS, AFEBRILE. PT'S CALLED THIS AM AT 1010 AND STATED TO NURSE THAT HE CANNOT CARE FOR HIS AT HOME. WANTS DC ADMISSIONS COUNSELOR TO CALL HIM ON SATURDAY. PT SWITCHED FROM CONTINUOUS FEEDS THIS SHIFT, PT TOLERATING WELL SO FAR. VALENTE CHANGED THIS SHIFT TO 16 FR THE 14 FR WAS LEAKING AND NOT DRAINING CORRECTLY. VICTOR PATENT AND DRAINING AT THIS TIME. REPOSITIONING Q2 AND ORAL CARE Q4 AND PRN. PT DENIES PAIN. BED IN LOW POSITION, CALL LIGHT WITHIN REACH. BED ALARM ON. 95% ON 3L VIA OXYMIZER AT THIS TIME.
[2019-11-02 04:59] LABS: BASOPHILS ABSOLUTE AUTO 0.04 K/mm3 (0.00-0.23); BASOPHILS PERCENT AUTO 0 % (0-2); EOSINOPHILS ABSOLUTE AUTO 0.09 K/mm3 (0.00-0.68); EOSINOPHILS PERCENT AUTO 1 % (0-6); Hematocrit 29.8 % (33.0-51.0); Hemoglobin 9.5 g/dL (11.5-16.0); IMMATURE GRAN ABSOLUTE AUTO 0.22 K/mm3 (0.00-0.10); IMMATURE GRAN PERCENT AUTO 2 % (0-1); LYMPHOCYTES ABSOLUTE AUTO 1.12 K/mm3 (0.84-5.20); LYMPHOCYTES PERCENT AUTO 9 % (21-46); MONOCYTES ABSOLUTE AUTO 0.98 K/mm3 (0.16-1.47); MONOCYTES PERCENT AUTO 8 % (4-13); Mean Corpuscular HGB 30.9 pg (26.0-34.0); Mean Corpuscular HGB Conc 31.9 g/dL (31.5-36.5); Mean Corpuscular Volume 97 fL (80-100); NEUTROPHILS ABSOLUTE AUTO 9.55 K/mm3 (1.96-9.15); NEUTROPHILS PERCENT AUTO 80 % (41-73); RDW Coefficient Variation 12.4 % (11.7-14.2); RDW Standard Deviation 43.5 fL (35.1-46.3); Red Blood Cell Count 3.07 M/mm3 (3.80-5.20)
[2019-11-02 05:03] LABS: Mean Platelet Volume 11.7 fL (9.1-12.4); Platelet Count 92 K/mm3 (150-400)
[2019-11-02 05:19] LABS: Anion Gap 7 mmol/L (6-16); Blood Urea Nitrogen 14 mg/dL (8-24); Bun/Creatinine Ratio 33.2 (12.0-20.0); CO2, Blood 26 mmol/L (21-32); Calcium, Blood 7.9 mg/dL (8.5-10.1); Chloride, Blood 113 mmol/L (98-108); Creatinine, Blood 0.42 mg/dL (0.40-1.00); Glomerular Filtration Rate >60 (60-); Glucose, Blood 82 mg/dL (70-99); Potassium, Blood 3.5 mmol/L (3.5-5.5); Sodium, Blood 146 mmol/L (136-145)
--- NOTE | 2019-11-02 14:39 | NUR ---
MAHNAZ said wait till 3:30 to reposition pt so she can have pain meds first, ot,pt,speach therapy have been in there working with patient today she said.
--- NOTE | 2019-11-02 18:20 | NUR ---
PT TOLERATING BOLUS TUBE FEEDS WELL, LITTLE TO NO RESIDUAL NOTED. MODIFIED BARRIUM SWALLOW DONE IN IMAGING. SEE REPORT. PT TO REMAIN STRICT NPO AT THIS TIME. PT WITH TEMP OF 99.3 THIS AFTERNOON, WILL MONITOR. NO ACUTE CHANGES NOTED THIS SHIFT
--- NOTE | 2019-11-02 22:19 | NUR ---
2508 PT CALLED AND WAS CONCERNED ABOUT PT D/C HOME. STATES HE IS UNABLE TO LIFT ANY AND THAT THE HOME IS TO SMALL. WOULD LIKE TO BE CALLED BY CARE MANAGEMENT IF POSSIBLE.
--- NOTE | 2019-11-03 05:02 | NUR ---
SUMMARY PT TOLERATED FEEDING WELL. PT REPOSITIONED NEEDED. NO ISSUES NOTED. PT VICTOR DRAINING WELL. PT HAS SLEPT T/O SHIFT. PT CALLED FOR UPDATE. CONCERNED HE WILL NOT BE ABLE TO CARE FOR PT. PT CURRENTLY SLEEPING AND BREATHING EASY. BED ALARM ON.
[2019-11-03 05:56] LABS: Triglycerides 60 mg/dL (30-160)
--- NOTE | 2019-11-03 17:46 | NUR ---
SHIFT SUMMARY PATIENT DENIES PAIN, NAUSEA, AND SHORTNESS OF BREATH. PATIENT CAN BE PAINFUL WHEN REPOSITIONED. REPOSITIONED Q2. PATIENT TOLERATING PEG TUBE BOLUS FEEDINGS WELL. PLEASANTLY CONFUSED AT TIMES. CALL LIGHT IN REACH.
--- NOTE | 2019-11-04 03:59 | NUR ---
SHIFT SUMMARY PATIENT HAD NO ACUTE CHANGES OBSERVED. AXOX 2 TO SELF AND FOLLOWING DIRECTION. HX DEMENTIA. NPO AND PEG TUBE IN PLACE FOR FEEDING AND MEDICATION ADMINISTRATION. PATIENT BEDFAST. POWERGLIDE SEE INTACT. VSS/AFEBRILE. DENIES PAIN, SOB, AND N/V. VICTOR PATENT AND DRAINING. ON 3L O2 NC. FAMILY CALLED X FIVE THIS SHIFT. BED ALARM ACTIVATED. CALL LIGHT IN REACH. BED IN LOWEST POSITION. WILL CONTINUE TO MONITOR UNTIL DAY SHIFT NURSE ASSUMES CARE.
--- NOTE | 2019-11-04 16:57 | NUR ---
Routine spiritual care visit: Although she is still quite frail, Magaly appeared to have some engery today. She was able to converse a bit and responded well to spiritual classification counselor and prayer. She tells me she is happy to be alive and is glad she made the decision to continue. She does not appear aware that her family cannot care for her. Regardless, she smiled easily today and was appreciative of visit.
--- NOTE | 2019-11-04 18:24 | NUR ---
SHIFT SUMMARY PT WORKED WITH PT THIS SHIFT. PT TOLERATING FEEDINGS WITHOUT DIFFICULTY. PT HAS NOT HAD BM IN SEVERAL DAYS-MILK OF MAG GIVEN. NO BM AT THIS TIME. PT HAD BED BATH THIS EVENING AND TOLERATED WELL. NO ACUTE CHANGES. WAITING FOR PLACEMENT. SOFT TOUCH CALL LIGHT IN REACH. WILL CONTINUE TO MONITOR AND REPORT TO ONCOMING RN.
--- NOTE | 2019-11-05 06:35 | NUR ---
SHIFT SUMMARY PT IS AN 79 Y/O FEMALE, ADMITTED FOR ACUTE RESPIRATORY FAILURE WITH HYPOXIA, AND CURRENTLY AWAITING PLACEMENT. SHE IS A&O X SELF ONLY, CURRENTLY ON BEDREST. PT IS NPO, RECEIVING BOLUS TUBE FEEDINGS. THE EVENING FEEDING WAS HELD DUE TO A HIGH RESIDUAL. NO COMPLAINTS OF ACUTE PAIN, NAUSEA OR SOB NOTED. VITAL SIGNS STABLE. NO ACUTE CHANGES IN PT CONDITION NOTED DURING THE NIGHT. WILL CONTINUE TO MONITOR AND TREAT PER EMAR UNTIL HAND OFF TO DAY SHIFT RN.
[2019-11-05] MEDS ORDERED: HYDR10 PT (14:34)
--- NOTE | 2019-11-05 17:18 | NUR ---
Magaly appears frail and tired today. Prayer and encouragement provided. She is being d/c to snf this afternoon. She tells me she is hopeful that she can eventually return home with her .
--- NOTE | 2019-11-05 17:59 | NUR ---
REPORT CALLED TO MARY ALICE AT [facility]. PT DC'D TO [facility] VIA [facility] AT 1745. PG DC'D INTACT. VICTOR LEFT IN PLACE PER DR SMITH. CARE MANAGEMENT NOTIFIED SPOUSE OF DISCHARGE TO [facility].
== END 2019-11-05 17:40 | DRG 871 ==
LOC: ER 20:05 → MEDS 20:06
PROVIDERS: Emergency Medicine; Family Medicine; Internal Medicine; Nurse Practitioner Acute Care; ADMIT Internal Medicine
PROC: 8E0ZXY6 Isolation (ICD-10-PCS; principal; 2019-10-23)
PROC: 0DH63UZ Insertion of Feeding Device into Stomach, Percutaneous Approach (ICD-10-PCS; 2019-10-29)
DX: A41.9 Sepsis, unspecified organism (principal); E43 Unspecified severe protein-calorie malnutrition; J69.0 Pneumonitis due to inhalation of food and vomit; J96.01 Acute respiratory failure with hypoxia; R64 Cachexia; Z68.1 Body mass index [BMI] 19.9 or less, adult; E87.0 Hyperosmolality and hypernatremia; M79.7 Fibromyalgia; R65.20 Severe sepsis without septic shock; J45.909 Unspecified asthma, uncomplicated; Z87.891 Personal history of nicotine dependence; I10 Essential (primary) hypertension; D72.829 Elevated white blood cell count, unspecified; Z66 Do not resuscitate; E87.6 Hypokalemia; E83.51 Hypocalcemia; R13.12 Dysphagia, oropharyngeal phase; I67.9 Cerebrovascular disease, unspecified; E86.0 Dehydration; G40.309 Generalized idiopathic epilepsy and epileptic syndromes, not intractable, without status epilepticus; F03.90 Unspecified dementia, unspecified severity, without behavioral disturbance, psychotic disturbance, mood disturbance, and anxiety
CPT/HCPCS: 0099U; 36415; 51701; 51702; 70450; 70551; 70553; 71045; 74018; 74230; 80048; 80053; 80069; 80177; 80185; 81001; 82330; 82803; 82947; 83605; 83735; 84100; 84145; 84439; 84443; 84478; 84481; 85025; 85027; 87040; 87086; 92526; 92610; 92611; 93005; 93010; 94762; 96365; 96367; 96372; 96375; 96376; 97110; 97163; 97166; 97530; 99285-25; A9270; A9577; C1751; C1769; G0378; J0696; J1120; J1165; J1650; J1953; J1956; J2704; J3480; J7030; J7042; J7050; J7060; J7070; J7120; P9612; U0002